=== PATIENT | male | born 1960 | race Caucasian/White ===

== ENCOUNTER → 2016-12-01 | Outpatient (CLI) | payer MEDICAID ==
--- NOTE | 2016-12-02 13:49 | RADIOLOGY REPORT PS360 ---
MRI-L-SPINE W/O, MRI-3D RENDERING/MYELOGRAM HISTORY: ACUTE LEFT SIDED LOW BACK PAIN WITH SCIATICA, DDD COMPARISON: Plain films of 11/20/2011 TECHNIQUE: Standard multiplanar multiecho sequences are performed without contrast. 3-D MIP and myelographic images are also rendered and reviewed FINDINGS: There is normal alignment. The spinal cord ends at the T12-L1 level. Multilevel degenerative disc disease with canal stenosis is present and outlined below. T11-T12: Degenerative disc disease with bulging disc with borderline canal stenosis. The bulging disc abuts the anterior aspect of the lower spinal cord. T11-T12: Unremarkable. L1-L2: Unremarkable. L2-L3: Mild degenerative disc disease with bulging disc along with facet and ligamentum flavum hypertrophy with borderline canal stenosis. L3-L4: Mild degenerative disc disease with bulging disc along the 7 ligamentum hypertrophy with transverse narrowing of the canal along with bilateral lateral recess narrowing. L4-L5: Moderate to severe degenerative disc disease with bulging disc along with facet and ligamentum hypertrophy with severe transverse narrowing of the canal and severe bilateral lateral recess narrowing and mild bilateral foraminal narrowing slightly greater on the right. L5-S1: Mild concentric bulging disc which is eccentric towards the left along with moderate to severe left-sided facet hypertrophic change and severe left-sided foraminal narrowing along with moderate left lateral recess narrowing. There is impingement upon the exiting L5 nerve root. No disc herniation. No fracture or dislocation. Type II endplate changes are present at L4-L5. IMPRESSION: 1. Multilevel degenerative disc disease with bulging disc, facet hypertrophic change, and canal stenosis. Canal stenosis is worse at the L4-L5 level with severe bilateral lateral recess narrowing at that level. 2. Bulging disc at L5-S1 which is eccentric towards the left along with moderate to severe left-sided facet hypertrophic change and severe left-sided foraminal narrowing along with moderate left lateral recess narrowing. There is impingement upon the exiting L5 nerve root.
== END ==
LOC: RAD 07:46
DX: M54.42 Lumbago with sciatica, left side (principal); M51.36 Other intervertebral disc degeneration, lumbar region; M12.88 Other specific arthropathies, not elsewhere classified, other specified site

== ENCOUNTER → 2016-12-14 | Outpatient (CLI) | payer MEDICAID ==
--- NOTE | 2016-12-14 15:36 | RADIOLOGY REPORT PS360 ---
ANKLE-RT-3 VIEWS HISTORY: Pain following injury S/P FALL, RT ANKLE INJURY COMPARISON: None FINDINGS: Nondisplaced oblique fracture involving the distal shaft of the fibula. The epicenter of the fracture is approximately 6 cm proximal to the distal aspect of the fibula.. A vertical lucency is noted through the posterior aspect of the distal tibia on the lateral view. It is uncertain whether this is secondary to fracture of the tibia or mock line from overlying fibular fracture. CT would confirm if clinically warranted. IMPRESSION: 1. Nondisplaced distal fibular fracture. 2. Possible posterior distal tibial fracture
--- NOTE | 2016-12-14 15:37 | RADIOLOGY REPORT PS360 ---
LOWER LEG-RT HISTORY: Posttraumatic pain S/P FALL, RT ANKLE INJURY COMPARISON: None FINDINGS: Nondisplaced oblique distal fibular shaft fracture is present. There is a vertical lucency overlying posterior distal tibia which could relate to nondisplaced fracture of the tibia versus modified from the overlying fibular fracture. There is some well-circumscribed hyperostosis involving the proximal tibia medially. No other significant anomalies are evident. IMPRESSION: 1. Nondisplaced distal fibular fracture. 2. Possible distal tibial fracture posteriorly. 3. Hyperostosis of the proximal tibia medially
== END ==
LOC: RAD 14:43
DX: M25.571 Pain in right ankle and joints of right foot (principal)